=== PATIENT | female | born 1945 | race African-American/Black ===

== ENCOUNTER → 2019-12-14 | Outpatient (CLI) | payer OTHER | LOC: SJCVC 13:41 | DX: R94.31 Abnormal electrocardiogram [ECG] [EKG] (principal); E78.5 Hyperlipidemia, unspecified; R06.02 Shortness of breath; R53.83 Other fatigue; R68.89 Other general symptoms and signs; C18.9 Malignant neoplasm of colon, unspecified; Z85.3 Personal history of malignant neoplasm of breast ==

== ENCOUNTER 2021-09-14 08:33 | Emergency (ER) | payer MEDICARE ==
[~2021-09-14] VITALS: Ht 175.3 cm; Wt 7.3 kg
[2021-09-14 09:29] LABS: ABSOLUTE NEUTROPHILS 2.5 thou/uL (1.4-8.2); BASOPHILS 0.5 % (0.0-2.0); EOSINOPHILS 11.4 % (0.0-3.0); HEMATOCRIT 37.7 % (37.0-47.0); HEMOGLOBIN 12.3 gm/dL (12.0-15.0); MCH 27.4 pg (26.0-34.0); MCHC 32.6 g/dL (28.0-37.0); MONOCYTES 10.1 % (1.0-8.0); PLATELET COUNT 263 thou/uL (150-400); RBC 4.48 mil/uL (4.20-5.00); RDW 15.8 % (10.5-14.5); WBC 4.6 thou/uL (4.0-11.0)
[2021-09-14 09:43] LABS: CALCIUM 9.4 mg/dL (8.5-10.1); CREATININE 1.4 mg/dL (0.6-1.0); POTASSIUM 3.2 mmol/L (3.5-5.1)
[2021-09-14 10:59] VITALS: BP 145/90
--- NOTE | 2021-09-14 15:15 | EKG ---
[place] [address] [facility] [place] [address] ELECTROCARDIOGRAM REPORT Name: JOHNATHAN NDIAYE [facility] [id number] Admission: 09/14/21 Attend Phys: Discharge: 09/14/21 Date of : 41 Report #: [id number] [facility] ED Test Date: 2021-09-14 Test Time: 08:50:38 Pat Name: JOHNATHAN NDIAYE Department: Room: Gender: F Chief Human Resources Officer: RICKI : 1945 Requested By: Les Slade Order Number: [id number] MD: Jorge Guerrier Measurements Intervals [place] Rate: 72 P: 39 NM: 175 QRS: -2 QRSD: 118 T: 38 QT: 458 QTc: 502 Interpretive Statements Sinus rhythm Probable left ventricular hypertrophy Prolonged QT interval No previous ECG available for comparison Electronically Signed On 09-14-2021 15:15:03 [employer] by Jorge Guerrier [email or web address] <ELECTRONICALLY SIGNED> By: Jorge Guerrier MD, [facility] 09/14/21 1515 0850 0850 Jorge Guerrier MD, FACC /EPI
== END 2021-09-14 11:00 | disposition home or self-care (01) ==
LOC: ER 08:33
PROVIDERS: Emergency Medicine
DX: E86.0 Dehydration (principal); Z20.822 Contact with and (suspected) exposure to COVID-19; I10 Essential (primary) hypertension; Z85.038 Personal history of other malignant neoplasm of large intestine; Z85.05 Personal history of malignant neoplasm of liver